=== PATIENT | female | born 1985 | race Caucasian/White ===

== ENCOUNTER 2020-12-13 13:49 | Emergency (ER) | payer SELFPAY ==
[2020-12-13] MEDS ORDERED: AMOXICILLIN500 M2 PO (15:05)
[2020-12-13] MEDS ORDERED: PERIDEX0.12 % MT (15:05)
[2020-12-13 16:30] VITALS: BP 128/93
== END 2020-12-13 16:30 | disposition home or self-care (01) | DRG 159 ==
LOC: ED 13:49
DX: K02.9 Dental caries, unspecified (principal)